=== PATIENT | male | born 1945 | race Caucasian/White ===

== ENCOUNTER 2017-01-29 11:35 | Inpatient (IN) | payer MEDICARE, OTHER ==
[2017-01-24 12:34] LABS: BASOPHILS 0.3 %; BASOPHILS ABSOLUTE 0.02 10/3/uL (0.0-0.16); EOSINOPHILS 1.7 %; EOSINOPHILS ABSOLUTE 0.11 10/3/uL (0.0-0.53); HEMATOCRIT 41.8 % (40.0-51.0); HEMOGLOBIN 13.8 g/dL (13.6-17.8); IMMATURE GRANULOCYTES 0.3 %; IMMATURE GRANULOCYTES ABSOLUTE 0.02 10/3/uL (0.0-0.11); LYMPHOCYTES 21.2 %; LYMPHOCYTES ABSOLUTE 1.38 10/3/uL (0.67-4.30); MEAN CORPUSCULAR HEMOGLOB 28.7 pg (26.0-34.0); MEAN CORPUSCULAR VOLUME 86.9 fL (80-100); MEAN PLATELET VOLUME 9.3 fL (9.2-13.0); MONOCYTES 8.4 %; MONOCYTES ABSOLUTE 0.55 10/3/uL (0.21-1.20); NEUTROPHILS 68.1 %; NEUTROPHILS ABSOLUTE 4.43 10/3/uL (2.02-8.40); PLATELET COUNT 209 10/3/uL (150-400); RBC DISTRIBUTION WIDTH 14.6 % (12.0-16.0); RED CELL COUNT 4.81 10/6/uL (4.7-6.1); WHITE BLOOD CELLS 6.5 10/3/uL (4.5-10.5)
[2017-01-24 12:37] LABS: MANUAL DIFF NO %
[2017-01-24 12:54] LABS: BUN (BLOOD UREA NITROGEN) 25 MG/DL (6-23); CALCIUM, SERUM 8.9 MG/DL (8.5-10.4); CHLORIDE, SERUM 106 MMOL/L (96-112); CO2 (CARBON DIOXIDE) 29 MMOL/L (24-34); CREATININE 2.15 MG/DL (0.70-1.30); GFR AFRICAN AMERICAN 34 ML/MIN (>=60); GFR NON AFRICAN AMERICAN 30 ML/MIN (>=60); GLUCOSE, SERUM 65 MG/DL (60-99); POTASSIUM, SERUM 3.9 MMOL/L (3.5-5.3); SODIUM, SERUM 143 MMOL/L (135-148)
--- NOTE | ~2017-01-29 | OP ---
Record Of Operation [facility] [address] [place]. [address] NAME: AHMET ANDRADE : 43 STATUS : ADM IN PAT#: [id number] AGE: 71 ADM/REG DATE : 01/29/17 MR#: [id number] REPORT SERV DATE: 02/05/17 DICTATED BY: ELIZABETH MARCH DATE: 02/05/17 REPORT STATUS : Draft TRANSCRIBED BY: MODL DATE: 02/05/17 DATE OF PROCEDURE: 02/05/2017 PREOPERATIVE DIAGNOSES: 1. Renal failure, requiring hemodialysis. 2. Need for long-term dialysis access. POSTOPERATIVE DIAGNOSES: 1. Renal failure, requiring hemodialysis. 2. Need for long-term dialysis access. PROCEDURES: 1. Removal of right internal jugular vein Vas-Cath over wire. 2. Placement of right internal jugular vein PermCath using fluoroscopic guidance. SURGEON: Elizabeth March M.D. ANESTHESIA: Local with MAC. ESTIMATED BLOOD LOSS: 10 mL. COMPLICATIONS: None. INDICATION: Mr. Andrade is a pleasant 71-year-old man with renal cell carcinoma requiring nephrectomy. He has required dialysis, but is otherwise ready to go home. He has a Vas- Cath in place and needs a PermCath to be discharged. DETAILS OF PROCEDURE: After informed consent was obtained, the patient was brought to the endovascular suite and placed in supine position. After administration of IV sedation, he was prepped and draped in the usual sterile fashion. A time-out was performed. I commenced the procedure by placing a Bentson wire through one of the lumens of the existing Vas-Cath. This was confirmed within the right atrium under fluoroscopy. I then anesthetized the skin of the right chest wall. I tunneled a 19 cm straight PermCath from the puncture site of the right chest wall up to the puncture site on the right side of the neck. The Vas-Cath was removed over the wire and a peel-away sheath placed over the wire. The wire was removed and the catheter placed through the peel-away sheath while peeling it apart. Tip of the catheter came to rest in the cavoatrial junction. Both ports were aspirated of dark venous blood and flushed easily with heparinized saline. Catheter was secured to the skin with 2-0 nylon. The puncture site on the right side of the neck was closed with 4-0 Monocryl. Sterile dressings were applied. The patient tolerated the procedure well with no complications. ANTHONY/CEDRIC Record Of [place] [address] [address] NAME: AHMET ANDRADE : 43 STATUS : ADM IN [facility]#: [id number] AGE: 71 ADM/REG DATE : 01/29/17 MR#: [id number] REPORT SERV DATE: 02/05/17 DICTATED BY: ELIZABETH MARCH DATE: 02/05/17 REPORT STATUS : Draft TRANSCRIBED BY: CEDRIC DATE: 02/05/17 Elizabeth March M.D. / [id number] CC: Tahira Vizcarra M.D.
--- NOTE | ~2017-01-29 | DS ---
Discharge Summary [facility] [address] [place]. [address] NAME: AHMET CRAWFORD : 43 STATUS : DIS IN PAT#: [id number] AGE: 71 ADM/REG DATE : 01/29/17 MR#: [id number] REPORT SERV DATE: 02/13/17 DICTATED BY: MORAIMA LI DATE: 02/13/17 REPORT STATUS : Draft TRANSCRIBED BY: MODMaury DATE: 02/13/17 Data Collection from hospitalization DISCHARGE DIAGNOSES: 1. Left kidney cancer. 2. Diabetes. 3. Hypertension. 4. Congestive heart failure. 5. History of prior acute on chronic kidney disease/end-stage renal disease. 6. History of severe osteoarthritis, status post bilateral hip and knee replacements. CONSULTATIONS: Danny Mcdonough M.D., Roberto Wallis M.D., and amy March M.D. PROCEDURES: 1. Left open radical nephrectomy on 01/29/2017. 2. Removal of right internal jugular vein Vas-Cath over wire and placement of right internal jugular vein PermCath using fluoroscopic guidance on 02/05/2017. 3. Venous Doppler ultrasound of the bilateral lower extremities on 01/30/2017. PATHOLOGY: Left kidney nephrectomy - renal cell carcinoma. Left adrenal gland - no tumor seen. Lymph nodes (four). Left renal hilar region resection - no tumor seen. DISCHARGE MEDICATIONS: Dulcolax 10 mg per rectum daily, PhosLo 1334 mg with meals, Coreg 6.25 mg twice a day as instructed, NovoLog injection insulin as instructed, Mevacor 40 mg daily, Demadex 100 mg daily, Coumadin half tablet four times a week in the morning as instructed, Coumadin 1 tablet on Mondays, Wednesdays, and Fridays, Proventil 3 mL via inhaler every four hours while awake, Tylenol 650 mg every four hours as needed, Xanax 0.5 mg twice a day as needed, Amaryl 2 mg daily, [place] 5/325 one tablet every four hours as needed, Apresoline 25 mg every eight hours as needed, Percocet 5/325 one tablet twice a day as needed, Norvasc 5 mg every morning - hold for systolic blood pressure less than 110, and vitamin D3 at 5000 units daily. CONDITION AT DISCHARGE: Stable. DISPOSITION: The patient was discharged to [facility] on a low-sodium, low- potassium regular diet with activities as instructed. He would follow up for dialysis as scheduled. HOSPITAL COURSE: This is a 71-year-old man, who has biopsy-proven left kidney cancer. Treatment options were discussed, and it was elected to proceed with surgical intervention. He was admitted to the hospital at this time for further evaluation and treatment. Upon admission, he was taken to the operating room where he underwent the above-mentioned procedure. He tolerated this well, and there were no complications. Postoperatively, he was seen by Dr. Danny Mcdonough. Serum creatinine has fluctuated between 1.7 and 2.27. It was now 2.24. There was a concern that he had had no urine output or minimal urine output postoperatively. He denied any shortness of breath. He does have an indwelling Martinez catheter. He also had acute on chronic kidney injury. Postoperatively, it was anticipated Discharge Summary [address] [place]. [address] NAME: AHMET CRAWFORD : 43 STATUS : DIS IN PAT#: [id number] AGE: 71 ADM/REG DATE : 01/29/17 MR#: [id number] REPORT SERV DATE: 02/13/17 DICTATED BY: MORAIMA LI DATE: 02/13/17 REPORT STATUS : Draft TRANSCRIBED BY: CEDRIC DATE: 02/13/17 that he would have some perioperative ATN in addition with reduction in nephron mass. It was anticipated that there would be declining kidney function and elevation of creatinine. We were hopeful that we could avoid renal replacement therapy. He was hypotensive at this time and was switched over to normal saline. A urinalysis was going to be checked. We were going to adjust his diet and get a renal dietary consult. We would attempt to avoid hypotension during this perioperative period. Antihypertensives would be used judiciously. On postop day one, the patient was seen by Dr. Roberto Wallis regarding postoperative shortness of breath. Preoperatively, he had been followed by Dr. Corrales. He had recently been diagnosed with dilated nonischemic cardiomyopathy with negative myocardial perfusion imaging study, vasodilator studies, and an ejection fraction on echocardiogram of 36% with global hypokinesis. Postoperatively, he received some intravenous fluids and had some pulmonary congestive symptoms. He had been wheezing earlier, but no wheezing at this time. He reported no chest pain, and troponin was verbally reported at 0.06. There were no acute EKG changes thus far. Following a knee procedure about 10 years ago, he developed left lower extremity DVT and had been on Coumadin until a few days preoperatively for this procedure. Intravenous fluids were going to be held. Cardiac enzymes would be checked as well as another EKG. In view of his postoperative history of DVT and chronic Coumadin therapy, we would check a lower extremity venous Doppler ultrasound. A venous Doppler ultrasound of the bilateral lower extremities was performed. This revealed left calf vein and posterior tibial vein thrombus. It was recommended that he undergo a repeat exam in three to five days to exclude propagation of clot into the deep system. On 01/31/2017, he was alert and cooperative. Creatinine level was 2.92 and then increased to 4.41. He was up, sitting in a chair. He was in no acute distress. Blood pressure adjustments were made to avoid hypotension. He did report persistent back and flank pain as well as some pleuritic pain. Bumex was being given. He underwent diabetes education. On 02/01/2017, creatinine was 5.72. [employer] was discontinued. The Martinez catheter was removed. It was felt that he would probably need dialysis. Coreg was continued. He did complain of some nausea and a poor appetite. Blood cultures had been obtained. A Vas-Cath was placed. Hemodialysis therapy was performed. The next day, he looked better. He said his shortness of breath and appetite have both improved. We would consider discontinuing heparin drip and using subcutaneous heparin for DVT prophylaxis. He did have some constipation. A straight cath was going to be performed. Dialysis was continued. On 02/03/2017, he was feeling well. He had no chest pain or shortness of breath. His lungs were clear. IV heparin was being given for DVT. He was stable from a cardiovascular standpoint. Low-dose Coreg continued. Coumadin was started. On 02/04/2017, he had no new complaints. His lungs remained clear. Creatinine was 5.14. The next day, he was seen by Dr. Amy March. The patient had a Vas-Cath in place. It was felt that he would need to undergo a PermCath to be discharged. The patient agreed to proceed. He was taken to the operating room where he underwent the above-mentioned procedure by Dr. Amy March. He tolerated this well, and there were no complications. Beta-ilane was continued for nonsustained ventricular tachycardia. Discharge planning was performed. On 02/06/2017, he continued to do well. He had no chest pain, shortness of breath, or palpitations. He said he was sleeping well. He had no complaints. He had no edema. Discharge instructions were given. Due to his improved and stable condition, he was discharged to [facility] with the above- stated instructions. Discharge Summary [address] [address] NAME: AHMET CRAWFORD : 43 STATUS : DIS IN PAT#: [id number] AGE: 71 ADM/REG DATE : 01/29/17 MR#: [id number] REPORT SERV DATE: 02/13/17 DICTATED BY: MORAIMA LI DATE: 02/13/17 REPORT STATUS : Draft TRANSCRIBED BY: CEDRIC DATE: 02/13/17 Information collected by: Letty Spears I submit the above information as my discharge summary. TG/CEDRIC Moraima Li M.D. / [id number] CC: Tahira Vizcarra M.D. [facility] Tahira Dimas Jr., M.D. Mandeep Grewal, M.D.
--- NOTE | ~2017-01-29 | HP ---
History And Physical [place] [address] [place]. [address] NAME: AHMET ANDRADE : 43 STATUS : ADM IN [facility]#: [id number] AGE: 71 ADM/REG DATE : 01/29/17 MR#: [id number] REPORT SERV DATE: 01/30/17 DICTATED BY: MORAIMA LI DATE: 01/29/17 REPORT STATUS : Draft TRANSCRIBED BY: MODL DATE: 01/29/17 DATE OF ADMISSION: 01/29/2017 CHIEF COMPLAINT: Left kidney cancer. HISTORY OF PRESENT ILLNESS: Mr. Andrade is a 71-year-old who is noted to have an elevated creatinine. He is referred to Nephrology. His creatinine is approximately 2. A renal ultrasound was checked to assess for obstruction or a renal vascular disease. He said that he was surprised at the finding of a solid and cystic left renal mass. This was 10 cm in maximal diameter. Subsequent CT scan showed shoddy hilar adenopathy. 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 He presents for cardiac workup for new finding of decreased ejection fraction. He is also newly diabetic. He presents for left open radical nephrectomy with node dissection for presumed T3 N1 M0 renal cell carcinoma. PAST MEDICAL HISTORY: Diabetes; CHF, newly diagnosed; hypertension; diabetes. MEDICATIONS: Alprazolam, amlodipine, glimepiride, hydralazine/HCTZ, lovastatin, oxycodone, vitamin D, and warfarin has been held. ALLERGIES: NONE KNOWN. FAMILY HISTORY: No family history of malignancies. SOCIAL HISTORY: He is . No tobacco or illicit drug use. Social alcohol use. REVIEW OF SYSTEMS: No chest pain, fevers, chills, nausea, vomiting, back pain, hematuria, or flank pain. He does have arthritis in multiple joints. PHYSICAL EXAMINATION: VITAL SIGNS: 290 pounds, 131/71, pulse 65, respirations 20. GENERAL: Pleasant, 71-year-old, appearing stated age, in no acute distress. HEENT: Sclerae anicteric. LUNGS: Clear. HEART: Regular rhythm. CHEST: Clear anteriorly. ABDOMEN: Soft, protuberant. No palpable mass. No rebound or guarding. No right or left CVA tenderness. No inguinal hernia. Bladder is not distended. No supraclavicular or inguinal adenopathy. NEUROLOGIC: He is oriented to person, place, time, and situation. LABORATORY DATA: Creatinine is 2.15. Hematocrit 41. PATHOLOGY: Biopsy of the left renal mass showed clear cell renal cell carcinoma. IMPRESSION: History And Physical [place] [address] [place]. [address] NAME: AHMET ANDRADE : 43 STATUS : ADM IN [facility]#: [id number] AGE: 71 ADM/REG DATE : 01/29/17 MR#: [id number] REPORT SERV DATE: 01/30/17 DICTATED BY: MORAIMA LI DATE: 01/29/17 REPORT STATUS : Draft TRANSCRIBED BY: CEDRIC DATE: 01/29/17 1. Left kidney cancer likely T3 N1 M0. 2. Chronic kidney disease. 3. Congestive heart failure, newly diagnosed. PLAN: Mr. Andrade is admitted for a left open radical nephrectomy with node dissection. Risks of bleeding, infection, tumor recurrence, and worsening chronic kidney disease were discussed. Consult Nephrology for postop. [facility]/CEDRIC Moraima Li M.D. / [id number] CC: Moraima Li M.D.
--- NOTE | ~2017-01-29 | CN ---
Consultation Report [facility] [address] [place]. [address] NAME: AHMET CRAWFORD : 43 STATUS : ADM IN PAT#: [id number] AGE: 71 ADM/REG DATE : 01/29/17 MR#: [id number] REPORT SERV DATE: 01/30/17 DICTATED BY: RAJWINDER MCDONOUGH DATE: 01/29/17 REPORT STATUS : Draft TRANSCRIBED BY: MODL DATE: 01/29/17 CONSULTATION. DATE OF CONSULTATION: 01/29/2017 TIME: 08:40 p.m. ASSESSMENT: 1. Acute on chronic kidney injury in a 71-year-old status post left nephrectomy for renal cell carcinoma with lymph node resection as well. Anticipate, he will have some perioperative ATN in addition with reduction in nephron mass. Anticipate that there will be declining kidney function and elevation of creatinine. Plan, family were updated on overall expectations. Hopefully, can avoid renal replacement therapy. 2. Hypotensive at this time. Therefore, switched him over to normal saline at 75 mL an hour. 3. Checked his urinalysis in the morning. See what his concentrating abilities at that time. 4. Adjust his diet and also get a renal dietary consult to evaluate and educate the patient and his family on his diet. Avoid hypotension during this perioperative period as well. So would judiciously use his antihypertensive at this time. HISTORY OF PRESENT ILLNESS: History is obtained from the records and the patient is a very pleasant 71-year-old gentleman with prior history of acute kidney injury back in 2013 at the time of his right hip replacement. Ultrasound at that time was normal, although he did have hematuria and question was Martinez related at that time. Serum creatinine has fluctuated since between 1.7 and 2.27 and was high as 1.84 in 2013, 2.4 in 09/12/2016, 2.07 on 01/17/2017, 2.15 on 01/24/2017, and 2.24 now post left nephrectomy. Concern has been that he has no urine output or minimal urine output postoperatively, hence was seeing him tonight. He denies any shortness of breath at this time. No chest pain. Postoperative left flank pain is described. He has indwelling Martinez catheter. PAST MEDICAL HISTORY: Includes: 1. History of bilateral hip and knee replacements for severe osteoarthritis. 2. Hypertension. 3. Prior acute and acute on chronic kidney disease. 4. No known history of diabetes or coronary artery disease. He has a negative stress test. SOCIAL HISTORY: He does not smoke cigarettes. No alcohol or medication or street drug usage. He used to work for [employer] and admits to some form of chemical exposure at that time. FAMILY HISTORY: His father suddenly in his 60s, although his father was a World War II . His mother of old age. There is no family history of cancer. HOME MEDICATIONS: Have been reviewed and include hydralazine as hypertensive. Consultation Report [place] [id number] [facility] [place]. [address] NAME: AHMET CRAWFORD : 43 STATUS : ADM IN [facility]#: [id number] AGE: 71 ADM/REG DATE : 01/29/17 MR#: [id number] REPORT SERV DATE: 01/30/17 DICTATED BY: RAJWINDER MCDONOUGH DATE: 01/29/17 REPORT STATUS : Draft TRANSCRIBED BY: MODL DATE: 01/29/17 REVIEW OF SYSTEMS: As per the HPI. ALLERGIES: NO KNOWN DRUG ALLERGIES. PHYSICAL EXAMINATION: GENERAL: He is an obese gentleman, in no acute distress. VITAL SIGNS: Blood pressure is running now 155/83, heart rate in the 70s, afebrile. HEENT: Pupils are reacting to light. He is not pale or jaundiced. Oral mucosa is moist. No pharyngitis. NECK: Supple. No thyromegaly. Trachea central. Air entry is equal bilaterally. CHEST: Clear to auscultation. ABDOMEN: Left flank surgical incision with a LEODAN drain. No active bleeding noted. No hepatosplenomegaly. Bowel sounds normal. EXTREMITIES: He has no peripheral edema. No skin rash reported and the muscle bulk and tone appropriate for age. No acute arthritic findings noted. He has bilateral hip and knee replacements with a surgical scar to show for it. He is oriented to time, place, and person. [place] not depressed. Cranial nerves are grossly intact. LABORATORY DATA: Sodium 143, potassium 4.4, chloride 109, CO2 of 28, BUN 23, creatinine 2.24, calcium is 8.2, mag is 2.0, phosphorus not done yet. Hemoglobin 12.1, hematocrit 37.7, white count 9.0, platelet count 178,000. MG/MODL Rajwinder Mcdonough M.D. / [id number] CC: Nghia Moran M.D.
--- NOTE | ~2017-01-29 | OP ---
Record Of Operation [facility] [address] [place]. [address] NAME: AHMET ANDRADE : 43 STATUS : ADM IN PAT#: [id number] AGE: 71 ADM/REG DATE : 01/29/17 MR#: [id number] REPORT SERV DATE: 01/30/17 DICTATED BY: MORAIMA LI DATE: 01/29/17 REPORT STATUS : Draft TRANSCRIBED BY: MODL DATE: 01/29/17 DATE OF PROCEDURE: 01/29/2017 PREOPERATIVE DIAGNOSIS: Left kidney cancer. POSTOPERATIVE DIAGNOSIS: Left kidney cancer. PROCEDURE PERFORMED: Left open radical nephrectomy. SPECIMEN: 1. Left kidney. 2. Hilar lymph node tissue. SURGEON: Moraima Li M.D. MD PHYSICIAN DERMATOLOGIST: Mr. Wong. ANESTHESIA: General. BLOOD LOSS: 750 mL. COMPLICATIONS: None. DRAINS: Sven-Rodríguez Martinez catheter. INDICATION: Mr. Andrade is a 71-year-old with a biopsy-proven left kidney cancer. He presents for a left open radical nephrectomy with node dissection. TECHNIQUE: Informed consent was obtained. He was brought to the operative room. Ancef was given preop. General anesthesia was administered. Martinez catheter was placed. He was then positioned in the right lateral decubitus position with bed flexed. Care was taken to pad all pressure points. The flank incision was made over the tip of the 11th rib. Muscles were divided with Bovie. The peritoneal cavity was entered. There was no gross peritoneal disease. A Bookwalter was utilized for retraction. I mobilized the descending colon medially by incising the white line with Bovie. The inferior and lateral attachments were taken down with Bovie cautery and clips. The ureter was divided between clips. On CT scan, there have been shoddy lymph nodes at the renal hilum, suspicious for metastatic disease. I divided the splenorenal ligament and took down the peritoneal reflection superiorly. Inferior to the renal hilum multiple small parasitic veins were present, these were clipped and divided. At the renal hilum, there was a single renal artery and branching renal vein. The hilar vessels were individually transected with stapling device. The adrenal gland was kept with the specimen. Final superior medial attachments were divided. He is bleeding from an adrenal vein. This was controlled with interrupted Vicryl suture ligature. The specimen was passed off the field. Additional FloSeal was placed at the upper aspect of the Record Of Operation [place] [id number] [facility] [place]. [address] NAME: AHMET ANDRADE : 43 STATUS : ADM IN PAT#: [id number] AGE: 71 ADM/REG DATE : 01/29/17 MR#: [id number] REPORT SERV DATE: 01/30/17 DICTATED BY: MORAIMA LI DATE: 01/29/17 REPORT STATUS : Draft TRANSCRIBED BY: CEDRIC DATE: 01/29/17 resection for hemostasis. Lymph nodes at the renal hilum and inferior to the renal hilum were mobilized with blunt dissection, clips, and cautery. These were sent separately as hilar lymph nodes. Sven-Rodríguez was placed through a separate stab incision inferiorly. This was placed behind the descending colon in the renal fossa. The abdominal wall fascia was closed with running #1 PDS suture in 3 layers. Distal internal retention sutures using 0 Vicryl were also placed. The wound was irrigated at all levels of closure. The skin was closed with subcuticular Monocryl. He made only 100 mL of urine during the case. He was extubated, taken to recovery room in satisfactory condition. He was given 700 mL of fluid during the case as well as 2 of albumin. MARTHA/CEDRIC Moraima Li M.D. / [id number] CC: Moraima Li M.D.
--- NOTE | ~2017-01-29 | CN ---
Consultation Report [facility] [address] [facility] [place]. [address] NAME: PETER ANDRADE : 43 STATUS : ADM IN [facility]#: [id number] AGE: 71 ADM/REG DATE : 01/29/17 MR#: [id number] REPORT SERV DATE: 01/30/17 DICTATED BY: PAYTON WALLIS JR. DATE: 01/30/17 REPORT STATUS : Draft TRANSCRIBED BY: MODL DATE: 01/30/17 CARDIOLOGY CONSULT DATE OF CONSULTATION: 01/30/2017 [facility] PRESS HELPER: Dr. Corrales. REASON FOR CONSULT: Regarding postoperative shortness of breath. HISTORY OF PRESENT ILLNESS: Peter Andrade is a 71-year-old obese white male with history of previous DVT, left lower extremity, and more recently diagnosed dilated nonischemic cardiomyopathy with negative MPI, vasodilator study, and ejection fraction on echocardiogram of 36% with global hypokinesis. He has been followed preoperatively by Dr. Corrales of our group. Postoperatively, he received some intravenous fluids and has some pulmonary congestive symptoms. He was wheezing earlier, I hear no wheezing now. He reports no chest pain and troponin has been reported verbally at 0.06. No acute EKG changes thus far. History of diabetes, hypertension, chronic kidney disease, recently diagnosed left renal cancer. He is currently status post nephrectomy from yesterday. Following a knee procedure about ten years ago, he developed a left lower extremity DVT and has been on Coumadin until a few days preoperatively for this procedure. SOCIAL HISTORY: Chews tobacco. No illicit drugs. . FAMILY HISTORY: Positive for a father who suddenly at age 62. ALLERGIES: NOTED. HOME MEDICATIONS: Noted. PHYSICAL EXAMINATION: VITAL SIGNS: Blood pressure 124/71, pulse is 72, saturation nasal cannula 4 L 91%. Intake greater than output. INR 1.3. HEENT: No xanthelasma. NECK: Jugular venous distention is present at 30 degrees, no thyromegaly, no carotid bruit. LUNGS: Clear to auscultation and percussion. Mild tachypnea. COR: No thrills, heaves, normal S1, increased pulmonic component of second heart sound. No gallop. No rub. No murmur. ABD: Soft, nontender, no hepatosplenomegaly, no mass. Consultation Report [facility] [address] [place]. [address] NAME: PETER ANDRADE : 43 STATUS : ADM IN PAT#: [id number] AGE: 71 ADM/REG DATE : 01/29/17 MR#: [id number] REPORT SERV DATE: 01/30/17 DICTATED BY: PAYTON WALLIS JR. DATE: 01/30/17 REPORT STATUS : Draft TRANSCRIBED BY: MODL DATE: 01/30/17 EXT: Trace edema bilaterally. MS: Back without spine or costovertebral angle tenderness. NEURO: Symmetric findings. LABORATORY DATA: BUN and creatinine up to 27 and 2.9, currently potassium 4.3. INR 1.3 after discontinuation of the Coumadin several days preop. DISCUSSION: 1. Shortness of breath, likely secondary to intravenous fluids postoperatively, status post nephrectomy with rising BUN and creatinine and history of significant nonischemic dilated cardiomyopathy with ejection fraction of 36%. 2. Agree with holding intravenous fluids and renal consult. Check cardiac enzymes again in the morning with another EKG. He is having no chest pain. His MPI showed no evidence of ischemia in recent weeks. In view of postoperative history of DVT and chronic Coumadin therapy, we will also check lower extremity venous ultrasound. Thank you for this consultation. Dr. Corrales to follow with you, beginning tomorrow. [place]/CEDRIC Payton Wallis Jr., M.D. / [id number] CC: Nghia Moran M.D.
[~2017-01-29 11:35] MED LIST: ALEVE220 MG PO; AMARYL2 PO; APRES50 PO; C5; COREG3 PO; COUMADIN7.5 MG PO; ETODOLAC500 MG OR; MEVACOR40 MG PO; NORCO1 TA1 PO; NORV25 PO; NORV5 PO; OXYCOD PO; PCET PO; PRIN5 PO; PRINZIDE1 TA1 PO; VIT D3 PO; X5 PO
[2017-01-29 12:30] LABS: INTERNATIONAL NORMAL RATI 1.2 UNITS (-); PROTIME (NOT ORD) 14.6 SEC (12.0-14.5)
[2017-01-29 18:54] LABS: BASOPHILS 0.2 %; BASOPHILS ABSOLUTE 0.02 10/3/uL (0.0-0.16); EOSINOPHILS 0.2 %; EOSINOPHILS ABSOLUTE 0.02 10/3/uL (0.0-0.53); HEMATOCRIT 37.7 % (40.0-51.0); HEMOGLOBIN 12.1 g/dL (13.6-17.8); IMMATURE GRANULOCYTES 0.6 %; IMMATURE GRANULOCYTES ABSOLUTE 0.05 10/3/uL (0.0-0.11); LYMPHOCYTES 12.7 %; LYMPHOCYTES ABSOLUTE 1.14 10/3/uL (0.67-4.30); MANUAL DIFF NO %; MEAN CORPUS HGB CONC 32.1 g/dL (32.0-36.0); MEAN CORPUSCULAR VOLUME 87.3 fL (80-100); MEAN PLATELET VOLUME 9.5 fL (9.2-13.0); MONOCYTES 3.9 %; MONOCYTES ABSOLUTE 0.35 10/3/uL (0.21-1.20); NEUTROPHILS 82.4 %; NEUTROPHILS ABSOLUTE 7.39 10/3/uL (2.02-8.40); PLATELET COUNT 178 10/3/uL (150-400); RBC DISTRIBUTION WIDTH 14.7 % (12.0-16.0); RED CELL COUNT 4.32 10/6/uL (4.7-6.1)
[2017-01-29 19:07] LABS: BUN (BLOOD UREA NITROGEN) 23 MG/DL (6-23); CALCIUM, SERUM 8.2 MG/DL (8.5-10.4); CHLORIDE, SERUM 109 MMOL/L (96-112); CO2 (CARBON DIOXIDE) 28 MMOL/L (24-34); CREATININE 2.24 MG/DL (0.70-1.30); GFR AFRICAN AMERICAN 33 ML/MIN (>=60); GFR NON AFRICAN AMERICAN 28 ML/MIN (>=60); GLUCOSE, SERUM 126 MG/DL (60-99); POTASSIUM, SERUM 4.4 MMOL/L (3.5-5.3); SODIUM, SERUM 143 MMOL/L (135-148)
[2017-01-30 06:57] LABS: BASOPHILS 0.1 %; BASOPHILS ABSOLUTE 0.01 10/3/uL (0.0-0.16); EOSINOPHILS 0 %; HEMATOCRIT 36.9 % (40.0-51.0); HEMOGLOBIN 11.7 g/dL (13.6-17.8); IMMATURE GRANULOCYTES 0.2 %; IMMATURE GRANULOCYTES ABSOLUTE 0.02 10/3/uL (0.0-0.11); LYMPHOCYTES 11.1 %; LYMPHOCYTES ABSOLUTE 0.97 10/3/uL (0.67-4.30); MEAN CORPUS HGB CONC 31.7 g/dL (32.0-36.0); MEAN CORPUSCULAR HEMOGLOB 28.3 pg (26.0-34.0); MEAN CORPUSCULAR VOLUME 89.3 fL (80-100); MEAN PLATELET VOLUME 9.7 fL (9.2-13.0); MONOCYTES ABSOLUTE 0.61 10/3/uL (0.21-1.20); NEUTROPHILS 81.6 %; NEUTROPHILS ABSOLUTE 7.13 10/3/uL (2.02-8.40); PLATELET COUNT 192 10/3/uL (150-400); RBC DISTRIBUTION WIDTH 14.8 % (12.0-16.0); RED CELL COUNT 4.13 10/6/uL (4.7-6.1); WHITE BLOOD CELLS 8.7 10/3/uL (4.5-10.5)
[2017-01-30 07:01] LABS: MANUAL DIFF NO %
[2017-01-30 07:11] LABS: INTERNATIONAL NORMAL RATI 1.3 UNITS (-); PROTIME (NOT ORD) 15.6 SEC (12.0-14.5)
[2017-01-30 07:16] LABS: ALBUMIN 3.2 G/DL (3.5-5.0); ALKALINE PHOSPHATASE 59 U/L (45-117); CHLORIDE, SERUM 106 MMOL/L (96-112); CO2 (CARBON DIOXIDE) 30 MMOL/L (24-34); DIRECT BILIRUBIN 0.2 MG/DL (0.0-0.4); INDIRECT BILIRUBIN(NOT ORDER) 0.4 MG/DL (0.1-0.9); POTASSIUM, SERUM 4.3 MMOL/L (3.5-5.3); SGOT(AST) 17 U/L (5-40); SGPT(ALT) 15 U/L (5-65); SODIUM, SERUM 141 MMOL/L (135-148); TOTAL BILIRUBIN 0.6 MG/DL (0-1.2)
[2017-01-30 07:19] LABS: BUN (BLOOD UREA NITROGEN) 27 MG/DL (6-23); CREATININE 2.92 MG/DL (0.70-1.30); GFR AFRICAN AMERICAN 24 ML/MIN (>=60); GFR NON AFRICAN AMERICAN 20 ML/MIN (>=60); GLUCOSE, SERUM 91 MG/DL (60-99); PHOSPHORUS, SERUM 6.9 MG/DL (2.5-4.5)
[2017-01-30 08:19] LABS: ASCORBIC ACID (UR NOT ORDER) NEG (NEG); BILIRUBIN, URINE NEGATIVE (NEG); KETONE, URINE NEGATIVE (NEG); LEUKOCYTE ESTERASE(NOT OR NEG (NEG); WBC (NOT ORDERED) (RFLEX) 3 (0-5)
[2017-01-31 07:10] LABS: BASOPHILS 0.2 %; BASOPHILS ABSOLUTE 0.02 10/3/uL (0.0-0.16); EOSINOPHILS 0.2 %; EOSINOPHILS ABSOLUTE 0.03 10/3/uL (0.0-0.53); HEMATOCRIT 38.5 % (40.0-51.0); HEMOGLOBIN 11.9 g/dL (13.6-17.8); IMMATURE GRANULOCYTES 0.7 %; IMMATURE GRANULOCYTES ABSOLUTE 0.08 10/3/uL (0.0-0.11); LYMPHOCYTES 7.8 %; LYMPHOCYTES ABSOLUTE 0.95 10/3/uL (0.67-4.30); MANUAL DIFF NO %; MEAN CORPUS HGB CONC 30.9 g/dL (32.0-36.0); MEAN CORPUSCULAR HEMOGLOB 27.7 pg (26.0-34.0); MEAN CORPUSCULAR VOLUME 89.7 fL (80-100); MEAN PLATELET VOLUME 9.9 fL (9.2-13.0); MONOCYTES 10.3 %; MONOCYTES ABSOLUTE 1.26 10/3/uL (0.21-1.20); NEUTROPHILS 80.8 %; NEUTROPHILS ABSOLUTE 9.89 10/3/uL (2.02-8.40); PLATELET COUNT 150 10/3/uL (150-400); RED CELL COUNT 4.29 10/6/uL (4.7-6.1); WHITE BLOOD CELLS 12.2 10/3/uL (4.5-10.5)
[2017-01-31 07:23] LABS: ALBUMIN 2.7 G/DL (3.5-5.0); BUN (BLOOD UREA NITROGEN) 41 MG/DL (6-23); CALCIUM, SERUM 7.9 MG/DL (8.5-10.4); CHLORIDE, SERUM 103 MMOL/L (96-112); CO2 (CARBON DIOXIDE) 23 MMOL/L (24-34); CREATININE 4.41 MG/DL (0.70-1.30); GFR AFRICAN AMERICAN 14 ML/MIN (>=60); GFR NON AFRICAN AMERICAN 12 ML/MIN (>=60); GLUCOSE, SERUM 82 MG/DL (60-99); PHOSPHORUS, SERUM 7.1 MG/DL (2.5-4.5); POTASSIUM, SERUM 4.7 MMOL/L (3.5-5.3); SODIUM, SERUM 134 MMOL/L (135-148)
[2017-02-01 04:32] LABS: BASOPHILS 0.2 %; BASOPHILS ABSOLUTE 0.02 10/3/uL (0.0-0.16); EOSINOPHILS 0.4 %; EOSINOPHILS ABSOLUTE 0.04 10/3/uL (0.0-0.53); HEMOGLOBIN 11.1 g/dL (13.6-17.8); IMMATURE GRANULOCYTES 0.6 %; IMMATURE GRANULOCYTES ABSOLUTE 0.06 10/3/uL (0.0-0.11); LYMPHOCYTES 10.2 %; LYMPHOCYTES ABSOLUTE 0.95 10/3/uL (0.67-4.30); MEAN CORPUS HGB CONC 31.7 g/dL (32.0-36.0); MEAN CORPUSCULAR HEMOGLOB 28.6 pg (26.0-34.0); MEAN CORPUSCULAR VOLUME 90.2 fL (80-100); MONOCYTES 9.8 %; MONOCYTES ABSOLUTE 0.91 10/3/uL (0.21-1.20); NEUTROPHILS 78.8 %; NEUTROPHILS ABSOLUTE 7.34 10/3/uL (2.02-8.40); PLATELET COUNT 172 10/3/uL (150-400); RBC DISTRIBUTION WIDTH 14.7 % (12.0-16.0); RED CELL COUNT 3.88 10/6/uL (4.7-6.1); WHITE BLOOD CELLS 9.3 10/3/uL (4.5-10.5)
[2017-02-01 04:41] LABS: MANUAL DIFF NO %
[2017-02-01 04:46] LABS: ALBUMIN 2.6 G/DL (3.5-5.0); CALCIUM, SERUM 8.2 MG/DL (8.5-10.4); CHLORIDE, SERUM 100 MMOL/L (96-112); CO2 (CARBON DIOXIDE) 24 MMOL/L (24-34); GFR AFRICAN AMERICAN 11 ML/MIN (>=60); GFR NON AFRICAN AMERICAN 9 ML/MIN (>=60); GLUCOSE, SERUM 70 MG/DL (60-99); PHOSPHORUS, SERUM 7.5 MG/DL (2.5-4.5); POTASSIUM, SERUM 4.7 MMOL/L (3.5-5.3); SODIUM, SERUM 133 MMOL/L (135-148)
[2017-02-01 04:47] LABS: BUN (BLOOD UREA NITROGEN) 54 MG/DL (6-23); CREATININE 5.72 MG/DL (0.70-1.30)
[2017-02-01 04:53] LABS: INTERNATIONAL NORMAL RATI 1.5 UNITS (-)
[2017-02-01 04:55] LABS: PROTIME (NOT ORD) 18.4 SEC (12.0-14.5)
[2017-02-01 17:27] LABS: PROCALCITONIN 2.99 ng/mL (<0.5)
[2017-02-02 04:51] LABS: BASOPHILS 0.1 %; BASOPHILS ABSOLUTE 0.01 10/3/uL (0.0-0.16); EOSINOPHILS 1.5 %; EOSINOPHILS ABSOLUTE 0.13 10/3/uL (0.0-0.53); HEMATOCRIT 31.7 % (40.0-51.0); HEMOGLOBIN 10.3 g/dL (13.6-17.8); IMMATURE GRANULOCYTES 0.5 %; IMMATURE GRANULOCYTES ABSOLUTE 0.04 10/3/uL (0.0-0.11); LYMPHOCYTES 10.5 %; MEAN CORPUS HGB CONC 32.5 g/dL (32.0-36.0); MEAN CORPUSCULAR HEMOGLOB 28.2 pg (26.0-34.0); MEAN PLATELET VOLUME 9.6 fL (9.2-13.0); MONOCYTES 11.4 %; MONOCYTES ABSOLUTE 0.98 10/3/uL (0.21-1.20); NEUTROPHILS ABSOLUTE 6.51 10/3/uL (2.02-8.40); PLATELET COUNT 174 10/3/uL (150-400); RBC DISTRIBUTION WIDTH 14.5 % (12.0-16.0); RED CELL COUNT 3.65 10/6/uL (4.7-6.1); WHITE BLOOD CELLS 8.6 10/3/uL (4.5-10.5)
[2017-02-02 04:52] LABS: MANUAL DIFF NO %; MEAN CORPUSCULAR VOLUME 86.8 fL (80-100)
[2017-02-02 05:03] LABS: INTERNATIONAL NORMAL RATI 1.6 UNITS (-); PROTIME (NOT ORD) 19.3 SEC (12.0-14.5)
[2017-02-02 05:06] LABS: ALBUMIN 2.3 G/DL (3.5-5.0); BUN (BLOOD UREA NITROGEN) 57 MG/DL (6-23); CALCIUM, SERUM 8.4 MG/DL (8.5-10.4); CHLORIDE, SERUM 101 MMOL/L (96-112); CO2 (CARBON DIOXIDE) 26 MMOL/L (24-34); CREATININE 5.64 MG/DL (0.70-1.30); GFR AFRICAN AMERICAN 11 ML/MIN (>=60); GFR NON AFRICAN AMERICAN 9 ML/MIN (>=60); PHOSPHORUS, SERUM 7.3 MG/DL (2.5-4.5); POTASSIUM, SERUM 4.3 MMOL/L (3.5-5.3); SODIUM, SERUM 137 MMOL/L (135-148)
[2017-02-02 05:07] LABS: GLUCOSE, SERUM 89 MG/DL (60-99)
[2017-02-02 05:45] LABS: PROCALCITONIN 3.71 ng/mL (<0.5)
[2017-02-02 12:01] LABS: ASCORBIC ACID (UR NOT ORDER) NEG (NEG); BILIRUBIN, URINE NEGATIVE (NEG); KETONE, URINE NEGATIVE (NEG); LEUKOCYTE ESTERASE(NOT OR TRACE (NEG); WBC (NOT ORDERED) (RFLEX) 6 (0-5)
[2017-02-02 12:39] LABS: INTERNATIONAL NORMAL RATI 1.6 UNITS (-); PROTIME (NOT ORD) 19.3 SEC (12.0-14.5)
[2017-02-03 04:25] LABS: BASOPHILS 0.3 %; BASOPHILS ABSOLUTE 0.02 10/3/uL (0.0-0.16); EOSINOPHILS 3.9 %; EOSINOPHILS ABSOLUTE 0.27 10/3/uL (0.0-0.53); HEMATOCRIT 30.8 % (40.0-51.0); HEMOGLOBIN 10.2 g/dL (13.6-17.8); IMMATURE GRANULOCYTES 0.4 %; IMMATURE GRANULOCYTES ABSOLUTE 0.03 10/3/uL (0.0-0.11); LYMPHOCYTES 14.6 %; LYMPHOCYTES ABSOLUTE 1.02 10/3/uL (0.67-4.30); MEAN CORPUS HGB CONC 33.1 g/dL (32.0-36.0); MEAN CORPUSCULAR HEMOGLOB 28.3 pg (26.0-34.0); MEAN CORPUSCULAR VOLUME 85.3 fL (80-100); MEAN PLATELET VOLUME 9.3 fL (9.2-13.0); MONOCYTES 12.3 %; MONOCYTES ABSOLUTE 0.86 10/3/uL (0.21-1.20); NEUTROPHILS 68.5 %; NEUTROPHILS ABSOLUTE 4.78 10/3/uL (2.02-8.40); PLATELET COUNT 182 10/3/uL (150-400); RBC DISTRIBUTION WIDTH 14.5 % (12.0-16.0); RED CELL COUNT 3.61 10/6/uL (4.7-6.1)
[2017-02-03 04:27] LABS: MANUAL DIFF NO %
[2017-02-03 04:33] LABS: INTERNATIONAL NORMAL RATI 1.7 UNITS (-); PROTIME (NOT ORD) 19.4 SEC (12.0-14.5)
[2017-02-03 04:43] LABS: ALBUMIN 2.3 G/DL (3.5-5.0); CALCIUM, SERUM 8.8 MG/DL (8.5-10.4); CHLORIDE, SERUM 101 MMOL/L (96-112); CO2 (CARBON DIOXIDE) 23 MMOL/L (24-34); GFR AFRICAN AMERICAN 9 ML/MIN (>=60); GFR NON AFRICAN AMERICAN 8 ML/MIN (>=60); GLUCOSE, SERUM 102 MG/DL (60-99); PHOSPHORUS, SERUM 7.6 MG/DL (2.5-4.5); SODIUM, SERUM 138 MMOL/L (135-148)
[2017-02-03 04:44] LABS: BUN (BLOOD UREA NITROGEN) 70 MG/DL (6-23)
[2017-02-03 09:21] LABS: INTERNATIONAL NORMAL RATI 1.7 UNITS (-)
[2017-02-03 09:22] LABS: PARTIAL THROMBO TIME 78.9 SEC (22.5-37.2)
[2017-02-04 05:01] LABS: INTERNATIONAL NORMAL RATI 1.7 UNITS (-); PROTIME (NOT ORD) 19.6 SEC (12.0-14.5)
[2017-02-04 05:14] LABS: ALBUMIN 2.4 G/DL (3.5-5.0); CALCIUM, SERUM 8.2 MG/DL (8.5-10.4); CHLORIDE, SERUM 102 MMOL/L (96-112); GLUCOSE, SERUM 100 MG/DL (60-99); POTASSIUM, SERUM 3.7 MMOL/L (3.5-5.3); SODIUM, SERUM 139 MMOL/L (135-148)
[2017-02-04 05:17] LABS: BUN (BLOOD UREA NITROGEN) 54 MG/DL (6-23); CO2 (CARBON DIOXIDE) 29 MMOL/L (24-34); CREATININE 5.14 MG/DL (0.70-1.30); GFR AFRICAN AMERICAN 12 ML/MIN (>=60); GFR NON AFRICAN AMERICAN 10 ML/MIN (>=60); PHOSPHORUS, SERUM 5.6 MG/DL (2.5-4.5)
[2017-02-04 10:48] LABS: HEPATITIS B SURFACE ANTIGEN NON-REACTIVE (NON-REACT)
[2017-02-04 10:56] LABS: HEPATITIS C ANTIBODY NON-REACTIVE (NON-REACT)
[2017-02-04 10:57] LABS: HEPATITIS B CORE AB IGM NON-REACTIVE (NON-REAC)
[2017-02-04 11:04] LABS: HEP A ANTIBODY IGM NON-REACTIVE (NON-REACT)
[2017-02-04 11:05] LABS: HIV COMBO NON-REACTIVE (NON REAC)
[2017-02-05 04:50] LABS: HEMATOCRIT 30.7 % (40.0-51.0); HEMOGLOBIN 10.1 g/dL (13.6-17.8)
[2017-02-05 04:56] LABS: INTERNATIONAL NORMAL RATI 1.8 UNITS (-); PROTIME (NOT ORD) 20.4 SEC (12.0-14.5)
[2017-02-05 05:02] LABS: CALCIUM, SERUM 8.5 MG/DL (8.5-10.4); CHLORIDE, SERUM 101 MMOL/L (96-112); CO2 (CARBON DIOXIDE) 27 MMOL/L (24-34); GFR AFRICAN AMERICAN 10 ML/MIN (>=60); GFR NON AFRICAN AMERICAN 9 ML/MIN (>=60); GLUCOSE, SERUM 97 MG/DL (60-99); PHOSPHORUS, SERUM 5.9 MG/DL (2.5-4.5); POTASSIUM, SERUM 3.5 MMOL/L (3.5-5.3); SODIUM, SERUM 140 MMOL/L (135-148)
[2017-02-05 05:04] LABS: BUN (BLOOD UREA NITROGEN) 67 MG/DL (6-23); CREATININE 5.83 MG/DL (0.70-1.30)
[2017-02-06 11:10] LABS: INTERNATIONAL NORMAL RATI 1.8 UNITS (-); PROTIME (NOT ORD) 20.6 SEC (12.0-14.5)
[2017-02-06 11:11] LABS: PARTIAL THROMBO TIME 96.3 SEC (22.5-37.2)
== END 2017-02-06 18:21 | DRG 656 ==
LOC: SDC/OF 11:35 → PACU 18:22 → 4SO 20:04
PROVIDERS: Internal Medicine Nephrology; Nurse Practitioner; Registered Nurse; Urology
DX: C64.2 Malignant neoplasm of left kidney, except renal pelvis (principal); N17.0 Acute kidney failure with tubular necrosis; J96.90 Respiratory failure, unspecified, unspecified whether with hypoxia or hypercapnia; I50.23 Acute on chronic systolic (congestive) heart failure; G93.49 Other encephalopathy; I42.8 Other cardiomyopathies; I95.89 Other hypotension; I13.0 Hypertensive heart and chronic kidney disease with heart failure and stage 1 through stage 4 chronic kidney disease, or unspecified chronic kidney disease; I50.22 Chronic systolic (congestive) heart failure; I82.442 Acute embolism and thrombosis of left tibial vein; E87.2 Acidosis; N18.4 Chronic kidney disease, stage 4 (severe); E11.22 Type 2 diabetes mellitus with diabetic chronic kidney disease; M19.90 Unspecified osteoarthritis, unspecified site; Z96.643 Presence of artificial hip joint, bilateral; Z96.653 Presence of artificial knee joint, bilateral; Z86.718 Personal history of other venous thrombosis and embolism; Z79.01 Long term (current) use of anticoagulants; Z72.0 Tobacco use; M10.9 Gout, unspecified; E66.9 Obesity, unspecified; Z68.37 Body mass index [BMI] 37.0-37.9, adult; I44.7 Left bundle-branch block, unspecified
CPT/HCPCS: 36415; 36558; 71010; 77001; 80048; 80069; 80074; 80076; 81001; 82962; 83735; 83880; 84145; 84484; 85014; 85018; 85025; 85610; 85730; 86850; 86900; 86901; 87040; 87389; 88307; 88312; 93005; 93970; 94640; 97165-GO; A9270-GY; C1769; C1887; G0257; G8987-CJ-GO; G8988-CJ-GO; G8989-CJ-GO; J0690; J2250; J2270; J2405; J2710; J2795; J3010; P9045; P9047